=== PATIENT | male | born 1990 | race Caucasian/White ===

== ENCOUNTER → 2023-08-26 11:01 | Outpatient (BNVA) | payer OTHER, SELFPAY | PROVIDERS: Visit Provider Physician Assistant Medical | DX: S97.82XA Crushing injury of left foot, initial encounter (principal); X58.XXXA Exposure to other specified factors, initial encounter | CPT/HCPCS: 99204 ==

== ENCOUNTER → 2023-09-09 13:20 | Outpatient (BNVA) | payer OTHER, SELFPAY | PROVIDERS: Visit Provider Physician Assistant | DX: S97.82XD Crushing injury of left foot, subsequent encounter (principal); X58.XXXD Exposure to other specified factors, subsequent encounter | CPT/HCPCS: 99214 ==

== ENCOUNTER → 2023-09-23 13:27 | Outpatient (BNVA) | payer OTHER, SELFPAY | PROVIDERS: PCP Hospitalist; Visit Provider Physician Assistant | DX: S97.82XD Crushing injury of left foot, subsequent encounter (principal); X58.XXXD Exposure to other specified factors, subsequent encounter | CPT/HCPCS: 99214 ==

== ENCOUNTER 2023-09-26 11:48 | Outpatient (REF) | payer OTHER, SELFPAY ==
--- NOTE | ~2023-09-26 | MR_ITS ---
EXAMINATION: MR FOOT WITHOUT CONTRAST, LEFT CLINICAL INFORMATION: Persistent left mid/medial foot pain following injury on 08/21/2023. COMPARISON: Left foot radiographs dated 08/26/2023. TECHNIQUE: Multisequence MR imaging of the left foot was obtained without contrast on a high-field strength scanner. FINDINGS: BONE: Dorsal/medial aspect of the distal medial cuneiform adjacent to the Lisfranc ligament attachment. No associated fracture line. No additional abnormal marrow signal. No metatarsal stress reaction or fracture. No concerning lytic or blastic osseous lesion. Intact articular cartilage. MUSCLES/TENDONS: The visualized flexor and extensor tendons are intact. No edema or evidence of acute muscle or tendon injury. LIGAMENTS: Mild thickening with increased T2 signal in the Lisfranc ligament. No associated joint space widening or full-thickness tear. Findings are consistent with a grade 1 sprain/partial tear. SOFT TISSUES: No soft tissue mass or fluid collection. No forefoot neuroma. MR/MR foot LT wo con IMPRESSION: Findings consistent with a grade 1 sprain/partial tear of the Lisfranc ligament. No associated joint space widening or full-thickness tear. Mild reactive marrow edema within the adjacent medial cuneiform without an associated fracture line.
== END 2023-09-26 11:49 | disposition home or self-care (01) ==
LOC: HO.MRI 11:48
PROVIDERS: PCP Hospitalist; Visit Provider Internal Medicine
DX: M79.672 Pain in left foot (principal)
CPT/HCPCS: 73718

== ENCOUNTER → 2023-10-01 15:31 | Outpatient (BNVA) | payer OTHER, SELFPAY | PROVIDERS: PCP Hospitalist; Visit Provider Physician Assistant | DX: S93.692D Other sprain of left foot, subsequent encounter (principal); X58.XXXD Exposure to other specified factors, subsequent encounter | CPT/HCPCS: 99213 ==